=== PATIENT | male | born 1995 | race Caucasian/White ===

== ENCOUNTER 2017-05-12 12:42 | Emergency (ER) | payer BC ==
[2017-05-12 13:12] LABS: Urine Bilirubin Negative (NEGATIVE); Urine Blood 250 /ul (NEGATIVE); Urine Ketone Negative (NEGATIVE); Urine Nitrite Negative (NEGATIVE); Urine Protein Negative (NEGATIVE); Urine Specific Gravity >=1.030 SP.GR. (1.005-1.030); Urine Urobilinogen Normal (NORMAL); Urine pH 5.5 pH (5.0-7.0)
[2017-05-12 13:22] LABS: Urine Appearance Slightly Cloudy; Urine Bacteria TRACE; Urine Color Yellow; Urine WBC None Seen /hpf (0-5)
--- NOTE | 2017-05-12 13:36 | ERNOTE ---
ER Male [facility] Date of Service: 05/12/17 Stated Complaint: LEFT SIDED PAIN ER Male: other - Flank pain Time Seen by Provider: 05/12/17 13:18 Source: patient, RN notes reviewed Exam Limitations: no limitations Immunizations: IMMUNIZATION HX Immunizations Up to Date Yes Allergies/Adverse Reactions: Allergies No Known Allergies Allergy (Unverified 05/12/17 12:53) Home Medications: HOME MEDICATIONS NK [No Home Medication] 05/12/17 [Last Taken Unknown] - Pain Score Pain Score #1 Pain Score: 0 - History of Present Illness Narrative: 21 y/o male ambulatory to the ED for left flank pain that began this morning. He took ibuprofen without improvement. The pain continued to worsen, and he began having urinary urgency and hesitancy. The pain then spontaneously resolved. He has no prior history of urinary problems. Date (Duration): 05/12/17 Timing: Present: resolved prior to arrival Onset Location: Present: left flank Radiation: Present: LLQ Activities at Onset: Present: none Prior Abdominal Problems: Present: none Associated Symptoms: Absent: fever/chills, nausea, vomiting Prior Treatment: Absent: recently seen Review of Systems - Review of Systems Constitutional: Absent: recent illness, fever, chills EYE: Present: no symptoms reported ENT: Present: no symptoms reported Respiratory: Present: no symptoms reported Cardiology: Present: no symptoms reported Gastrointestinal/Abdominal: Absent: nausea, vomiting, diarrhea, constipation Genitourinary: Absent: hematuria, decreased urinary output, discharge Musculoskeletal: Present: back pain. Absent: muscle pain Skin: Absent: rash, lesions, lumps Neurological: Absent: headache, dizziness/light-headedness Endocrine: Present: no symptoms reported Hematologic/Lymphatic: Absent: easy bruising, easy bleeding Psych: Present: no symptoms reported - Patient's Past Medical History Patient History - Medical: No pertinent hx Patient History - Cardiac/Respiratory: No pertinent hx Patient History - Cancer: No Hx of Cancer Patient History - Surgical Procedures: No surgical history Patient History - Other: None - Social History Living Situations: home Psych History: No pertinent hx Smoking Status: Never smoker Alcohol Use: none Drug Use: none - Immunizations Immunizations Up to Date: Yes Physical Exam - Physical Exam General Appearance: Present: wd/wn, alert, no apparent distress Neck: Present: normal inspection, nontender, supple Respiratory: Present: no respiratory distress, normal breath sounds, no accessory muscle use, lungs clear Cardiovascular/Chest: Present: regular rate, rhythm, no murmur, normal peripheral pulses Gastrointestinal/Abdominal: Present: normal bowel sounds, nontender, nondistended, soft Back Exam: Present: normal inspection, no CVA tenderness, no vertebral tenderness Extremity Exam: Present: normal inspection, normal range of motion Neurological Exam: Present: alert, oriented, normal mood/affect, no motor/ sensory deficits Skin Exam: Present: normal color, warm/dry ED Progress - Results and Orders Patient's Lab Results:: I have reviewed the patient's lab results. - Vital Signs Patient's Vital Signs:: I have reviewed the patient's vital signs. Vital Signs: Vital Signs 05/12/17 05/12/17 12:48 13:29 Temperature 36.9 C Pulse Rate 69 67 Respiratory 12 16 Rate Blood Pressure 139/78 124/68 O2 Sat by Pulse 99 97 Oximetry - Progress/Reassessment Chief Complaint: Genitourinary Problem Progress:: Pain free at discharge Plan - Plan Plan: Blood present on UA, patient continues to not have any further pain, discussed possibility that he has passed a stone or that he had a ureteral calculus that has dropped into the bladder. Discussed imaging but as the patient is no longer having pain it was agreed to hold off on a CT for now. Patient is agreeable to returning if symptoms return. D/C'd with supplies to strain urine. Departure Clinical Impression: Acute flank pain, Hematuria - Departure Disposition: Home self-care Condition: Good Instructions: Flank Pain Additional Instructions: Increase fluid intake Strain urine Return if needed for worsening pain, vomiting, difficulty urinating, or other concerns
--- OUTSIDE RECORDS SUMMARY | 2017-05-12 13:59 | XMS REPORT | Continuity of Care Document ---
:1995 Author Organization [facility] ([facility]) Address [address] [place] [address] Phone [phone] Care Team Providers Name Role Phone Provider, No-Primary Care Primary Care Provider Unavailable Source Comments This disclosure is being made pursuant to the Care Everywhere program, applicable federal and state laws, and may not contain all informaitonavailable regarding this patient.[facility] ([facility]) Active Allergies and Adverse Reactions Not on File Current Medications Not on file Active Problems Not on file Social History Tobacco Use Types Packs/Day Years Used Date Never Assessed Plan of Care Health Maintenance Due Date Last Done Comments Hepatitis B Vaccine (1 of 3 - Primary Series) 1997 HPV Vaccine (1 of 3 - Male 3 Dose Series) 2008 Tdap Vaccine 2008 Meningococcal Vaccine (1 of 1) 2013 Lipid Disorder Screening 2015 MMR Vaccine 2015 Td Vaccine 2015 Varicella Vaccine (1 of 2 - Adult - No Evidence of 2015 Immunity) Influenza Vaccine: Seasonal (#1) 06/30/2016 Results from Last 3 Months Not on file
[2017-05-12 15:44] VITALS: BP 121/67
== END 2017-05-12 15:46 | disposition home or self-care (01) ==
LOC: ER 12:42
DX: R10.9 Unspecified abdominal pain (principal); R31.9 Hematuria, unspecified

== ENCOUNTER 2017-05-17 02:01 | Emergency (ER) | payer BC ==
[2017-05-17 02:17] LABS: Hematocrit 46.2 % (42.0-52.0); Hemoglobin 15.9 gm/dL (13.5-18.0); Mean Cell Volume 80.5 fl (78-100); Mean Corpuscular Hemoglobin 27.7 pg (27-31); Mean Corpuscular Hgb Conc 34.4 g/dl (32-36); Mean Platelet Volume 9.9 fl (6.0-9.5); Platelet Count 293 K/mm3 (150-450); Red Blood Count 5.74 M/mm3 (4.7-6.0); Red Cell Distribution Width 12.1 % (11.5-14.0)
[2017-05-17 02:26] LABS: Total Cells Counted 100
[2017-05-17 02:31] LABS: ALT 57 U/L (19-67); AST 35 U/L (0-48); Albumin * 4.1 gm/dl (3.4-5.0); Alkaline Phosphatase * 105 U/L (50-170); Amylase * 47 U/L (25-115); Anion Gap 9.1 mmol/L (6.8-13.8); BUN/Creatinine Ratio 13.5 (9.0-21.6); Bilirubin, Total 0.3 mg/dL (0.0-1.1); Blood Urea Nitrogen 17 mg/dL (6-23); Ca. Corrected For Albumin 9.4 mg/dL (8.4-10.2); Calcium * 9.8 mg/dL (7.9-10.9); Carbon Dioxide 27.7 mmol/L (24-32.6); Chloride 104 mmol/L (97-106); Glucose * 114 mg/dL (70-110); Potassium 3.8 mmol/L (3.4-4.6); Sodium 137 mmol/L (132-142); Total Protein 8.2 gm/dL (6.2-8.2)
[2017-05-17 02:49] LABS: Band 7 % (0-2.0); Lymphocyte 10 % (20-51); Monocyte 9 % (0-9); Neutrophil 74 % (42-75); Neutrophil # 16.3 K/mm3 (1.3-6.0); Platelet Estimate Normal (NORMAL)
[2017-05-17 02:50] LABS: RBC Morphology Normal (NORMAL)
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
--- OUTSIDE RECORDS SUMMARY | 2017-05-17 03:23 | XMS REPORT | Continuity of Care Document ---
:1995 Author Organization [facility] ([facility]) Address [address] [place] [address] Phone [phone] Care Team Providers Name Role Phone Provider, No-Primary Care Primary Care Provider Unavailable Source Comments This disclosure is being made pursuant to the Care Everywhere program, applicable federal and state laws, and may not contain all informaitonavailable regarding this patient.[facility] ([facility]) Active Allergies and Adverse Reactions Not on [...]
[2017-05-17 04:12] LABS: Urine Bilirubin Negative (NEGATIVE); Urine Blood 50 /ul (NEGATIVE); Urine Ketone 5 mg/dL (NEGATIVE); Urine Nitrite Negative (NEGATIVE); Urine Protein 15 mg/dL (NEGATIVE); Urine Specific Gravity >=1.030 SP.GR. (1.005-1.030); Urine Urobilinogen Normal (NORMAL); Urine pH 5.5 pH (5.0-7.0)
[2017-05-17 04:20] VITALS: BP 140/59
[2017-05-17 04:22] LABS: Urine Appearance Clear; Urine Bacteria TRACE; Urine Color Yellow; Urine Mucus Few - 1+; Urine RBC 0-5 /hpf (0-5); Urine WBC None Seen /hpf (0-5)
[2017-05-17 04:24] LABS: Cocaine Ur Negative (NEGATIVE); Urine Barbiturate Negative (NEGATIVE); Urine Benzodiazepines Negative (NEGATIVE); Urine Opiates Negative (NEGATIVE); Urine PCP Negative (NEGATIVE); Urine THC Negative (NEGATIVE)
== END 2017-05-17 04:33 | disposition home or self-care (01) ==
LOC: ER 02:01
PROC: 0JQ00ZZ Repair Scalp Subcutaneous Tissue and Fascia, Open Approach (ICD-10-PCS; principal; 2017-05-17)
PROC: 0HQ7XZZ Repair Abdomen Skin, External Approach (ICD-10-PCS; 2017-05-17)
PROC: 0JQP0ZZ Repair Left Lower Leg Subcutaneous Tissue and Fascia, Open Approach (ICD-10-PCS; 2017-05-17)
DX: S01.01XA Laceration without foreign body of scalp, initial encounter (principal); S06.0X9A Concussion with loss of consciousness of unspecified duration, initial encounter; S81.032A Puncture wound without foreign body, left knee, initial encounter; S30.811A Abrasion of abdominal wall, initial encounter; V59.9XXA Occupant (driver) (passenger) of pick-up truck or van injured in unspecified traffic accident, initial encounter; Y92.488 Other paved roadways as the place of occurrence of the external cause
CPT/HCPCS: 12001; 36415; 70450; 71010; 72125; 72170; 73090; 73562; 80053; 80307; 81001; 82150; 85025; 86850; 86900; 93005; 99283; G0481

== ENCOUNTER 2017-05-28 16:11 | Emergency (ER) | payer BC ==
[2017-05-28 16:11] VITALS: BP 140/59
== END 2017-05-28 16:20 | disposition home or self-care (01) ==
LOC: ER 16:11
DX: Z48.02 Encounter for removal of sutures (principal)